=== PATIENT | female | born 2000 | race Caucasian/White ===

== ENCOUNTER 2018-04-09 22:17 | Emergency (ER) | payer OTHER, MEDICAID ==
[~2018-04-09] VITALS: Ht 170.2 cm; Wt 81.7 kg
[~2018-04-09 22:17] MED LIST: KEFLEX500 MG PO; NAPROSYN500 MG PO
[2018-04-09] MEDS ORDERED: TYLENOL EXTRA500 MG PO (22:30)
[2018-04-09] MEDS ORDERED: PRENATAL (22:31)
[2018-04-09 23:23] LABS: URINE BILIRUBIN NEGATIVE (Negative); URINE BLOOD TRACE (Negative); URINE CLARITY CLEAR; URINE COLOR YELLOW; URINE GLUCOSE-RANDOM NEGATIVE (Negative); URINE KETONES NEGATIVE (Negative); URINE NITRITE-REFLEX NEGATIVE (Negative); URINE PROTEIN NEGATIVE (Negative); URINE UROBILINOGEN 0.2 E.U./dl (0.2-1.0)
[2018-04-09 23:24] LABS: URINE LEUKOCYTES-REFLEX 2+ (Negative)
[2018-04-09 23:59] LABS: CASTS None Seen /LPF (None Seen); SQUAMOUS >10 Many /LPF (0-3)
[2018-04-10] LABS: CRYSTALS None Seen /LPF (None Seen); URINE RBC 3-10 Few /HPF (0-2)
[2018-04-10] MEDS ORDERED: MACROBID 100 M100 M1 PO (00:01)
[2018-04-10 00:11] VITALS: BP 123/67
== END 2018-04-10 00:14 | disposition home or self-care (01) ==
LOC: M.ERS 22:17
PROVIDERS: Nurse Practitioner Family
DX: O23.43 Unspecified infection of urinary tract in pregnancy, third trimester (principal); O99.513 Diseases of the respiratory system complicating pregnancy, third trimester; J00 Acute nasopharyngitis [common cold]; Z3A.28 28 weeks gestation of pregnancy